=== PATIENT | male | born 1980 | race Caucasian/White ===

== ENCOUNTER 2019-02-20 07:01 | Emergency (ER) | payer OTHER ==
[~2019-02-20] VITALS: Ht 180.3 cm; Wt 106.6 kg
[~2019-02-20 07:01] MED LIST: LEVE500 PO
== END 2019-02-20 08:46 | disposition home or self-care (01) ==
LOC: ER 07:01
DX: S22.049A Unspecified fracture of fourth thoracic vertebra, initial encounter for closed fracture (principal); S22.059A Unspecified fracture of T5-T6 vertebra, initial encounter for closed fracture; Z88.5 Allergy status to narcotic agent; W16.92XA Jumping or diving into unspecified water causing other injury, initial encounter
CPT/HCPCS: 72070; 99283-25

== ENCOUNTER → 2020-07-26 | Outpatient (CLI) | payer OTHER ==
[2020-07-28 14:58] LABS: CORNONAVIRUS (COVID19) CSH-NRL Positive (Negative)
== END | disposition home or self-care (01) ==
LOC: LAB SHORT 08:35
PROVIDERS: Family Medicine
DX: U07.1 COVID-19 (principal)
CPT/HCPCS: U0003